=== PATIENT | male | born 2005 | race Caucasian/White ===

== ENCOUNTER 2025-07-25 11:17 | Emergency (ER) | payer BC ==
--- OUTSIDE RECORDS SUMMARY | 2025-07-25 11:23 | XMS REPORT | Continuity of Care Document ---
Author Name Unknown Address [address] [place] [address] [facility] Address [address] [place] [address] Care Team Providers Care Physical Instructor Name Role Phone Pcp, Pcp Primary Care Physician UnavailARCHIE Abbott Attending Clinician Unavailab CAROL Mccauley Attending Clinician Unavailable MEJIA JOHNS Attending Clinician Unavailable DAGMAR DE LA ROSA Attending Clinician Unavail KOJO House Attending Clinician Unavailable ROLDAN WARNER Attending Clinician Unavailable Greta Lagunas Attending Clinician [phone] Brittney Doshi Lenart Attending Clinician U Gurdeep Correia MD Attending Clinician [phone] LULÚ HINES Attending Clinician LULÚ Rosario Attending Clinician Brittney Mobley Lenart Admitting Clinician U LULÚ Kidd Admitting Clinician Harleen nogueira Payers Payer Name Policy Type Policy Number Effective Date Expirati on Date Source BCBS 2 [id number] 2025 00:00:00 [place] [id number] 2021 00:00:00 BCTP BCTP [id number] Problems Condition Name Condition Details Condition Category Status Onset Date Resolution Date Last Treatment Date Treating Clinician Comments Source Paraplegia with neurogenic urinary bladder Paraplegia with neurogenic urinary bladder Disease Active 2024-10 0- 00:00: 00 Mariah Seybold - Externa l Muscle spasticity Muscle spasticity Disease Active 2024-10 0-08 00:00: 00 Mariah Seybold - Externa l Closed fracture of spinous process of cervical vertebra Closed fracture of spinous process of cervical vertebra Disease Active 07-07 00:00: 00 [facility] Closed fracture of sternum Closed fracture of sternum Disease Active 07-07 00:00: 00 [facility] Closed fracture of transverse process of thoracic vertebra Closed fracture of transverse process of thoracic vertebra Disease Active 07-07 00:00: 00 [facility] 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 Disease Active 07-07 00:00: 00 [facility] Essential hypertensi on Essential hypertensi on Disease Active 07-07 00:00: 00 [facility] Laceration of spleen Laceration of spleen Disease Active 07-07 00:00: 00 [facility] Neurogenic bladder Neurogenic bladder Disease Active 07-07 00:00: 00 [facility] Neurogenic bowel Neurogenic bowel Disease Active 07-07 00:00: 00 [facility] Spinal cord injury at T1-T6 level with complete spinal cord lesion, initial encounter (CMS/HCC) Spinal cord injury at T1-T6 level with complete spinal cord lesion, initial encounter (CMS/HCC) Disease Active 825 00:00: 00 Memoria l Sath[facility] Fracture of wrist, right, closed, initial encounter Fracture of wrist, right, closed, initial encounter Disease Active Mariah Seybold - Externa l Orthostati c hypotensio n Orthostati c hypotensio n Disease Active Maraih Seybold - Externa l Anemia Anemia Disease Active Mariah Seybold - Externa l Broken ribs Broken ribs Disease Active Mariah Seybold - Externa l Malnutriti on Malnutriti on Disease Active Mariah Cook - Externa l Social History Social Habit Start Date Stop Date Quantity Comments Source Sexual orientation Raeann gregory Secristinoleora - External History of tobacco use Cigarette Smoker Mariah Kar corey - External Gender identity Negar pressley Secristinoleora - External Tobacco use and exposure 2025-07-23 00:00:00 2025-07-23 00:00:00 Former smokeless tobacco user Mariah Joyce - External Alcoholic beverage intake 2025-07-23 00:00:00 2025-07-23 00:00:00 Current drinker of alcohol (finding) Mariah Joyce - External History of Social function 2025-07-23 00:00:00 2025-07-23 00:00:00 Mariah Joyce - External Sex 2025-07-11 08:59:28 2025-07-11 08:59:28 Male (finding) Mariah Joyce - External Sex assigned at 2005 00:00:00 2005 00:00:00 [facility] Smoking Status Start Date Stop Date Source Tobacco smoking consumption unknown [facility] Ex-smoker 2025-07-23 00:00:00 2025-07-23 00:00:00 Mariah Carringtongurpreet - External Never smoked tobacco [facility] Medications Ordered Medication Name Filled Medication Name Start Date Stop Date Current Medication? Ordering Clinician Indication Dosage Frequency Signature (SIG) Comments Components Source Acetaminoph en (TYLENOL) 500 MG oral Tablet Acetaminoph en (TYLENOL) 500 MG oral Tablet 2024-10 11:46: 52 Yes Q.25D Take by mouth every 6 hours as needed. Mariah hardy Baclofen 10 MG oral Tablet Baclofen 10 MG oral Tablet 2024-10 11:46: 52 Yes TAKE 1/2 TABLET BY MOUTH EVERY 8 HOURS FOR 30 DAYS NEEDED FOR SPASMS Mariah hardy Bisacodyl 10 MG rectal Suppository Bisacodyl 10 MG rectal Suppository 2024-10 11:46: 52 Yes Insert 1 suppositor y every day by rectal route as needed. Mariah hardy Docusate Sodium (DSS) 100 MG oral Capsule Docusate Sodium (DSS) 100 MG oral Capsule 2024-10 11:46: 52 Yes 2{capsu le} Q.5D Take 2 capsules by mouth 2 times daily. Mariah hardy Senna-Time 8.6 MG oral Tablet Senna-Time 8.6 MG oral Tablet 2024-10 11:46: 52 Yes 2{tbl} QD Take 2 tablets by mouth daily. Mariah hardy Zinc Sulfate 220 (50 Zn) MG oral Capsule Zinc Sulfate 220 (50 Zn) MG oral Capsule 2024-10 11:46: 52 Yes 220mg Take 1 capsule (220 mg total) by mouth at bedtime. Mariah hardy Midodrine HCl 5 MG oral Tablet Midodrine HCl 5 MG oral Tablet 2024-10 00:00: 00 Yes [id number] 5mg Q.[id number] 3D Take 1 tablet (5 mg total) by mouth 3 times daily as needed (Sporting Mouthstat ic changes). Mariah hardy gabapentin (Neurontin) 300 MG capsule 2024-10 13:51: 51 Yes 300mg Q.[id number] [id number] 3D Take 300 mg by mouth in the morning and 300 mg at noon and 300 mg in the evening. [facility] midodrine (Proamatine ) 5 MG tablet 2024-10 13:51: 51 Yes TAKE 2 TABLETS BY MOUTH TWICE A DAY PRN for hypotensio n [facility] Senna-Time 8.6 MG tablet 2024-10 13:51: 51 Yes 2{tbl} QD Take 2 tablets by mouth in the morning. [facility] zinc sulfate (Zincate) 220 (50 Zn) MG capsule 2024-10 13:51: 51 Yes Take 50 mg of elemental zinc by mouth every night. [facility] docusate sodium (Colace) 100 MG capsule 2024-10 13:51: 51 Yes 200mg Q.5D Take 200 mg by mouth in the morning and 200 mg before bedtime. [facility] bisacodyl (Dulcolax) 10 MG suppository 2024-10 13:51: 51 Yes Insert 1 suppositor y every day by rectal route as needed. [facility] acetaminoph en (Tylenol) 500 MG tablet 2024-10 13:51: 42 Yes Q6H Take by mouth every 6 (six) hours if needed for mild pain. [facility] Aspirin 325 MG oral Tablet Aspirin 325 MG oral Tablet 16 00:00: 00 Yes 325mg QD Take 1 tablet (325 mg total) by mouth daily. Mariah hardy aspirin 325 MG tablet aspirin 325 MG tablet 06-19 00:00: 00 07-19 23:59 :00 No 325mg QD Take 1 tablet by mouth 1 time each day. Rainer Saleh pantoprazol e (ProtoNix) 40 MG EC tablet pantoprazol e (ProtoNix) 40 MG EC tablet 06-19 00:00: 00 07-19 23:59 :00 No 40mg Take 1 tablet by mouth in the morning. Take before meals. Do not crush, chew, or split. Rainer Saleh bisacodyl (Dulcolax) 10 MG suppository bisacodyl (Dulcolax) 10 MG suppository 06-19 00:00: 00 06-29 23:59 :00 No 10mg QD Insert 1 suppositor y into the rectum 1 time each day for 10 days. Rainer Saleh Gabapentin 300 MG oral Capsule Gabapentin 300 MG oral Capsule 06-18 00:00: 00 Yes 300mg Take 1 capsule (300 mg total) by mouth every 8 hours. Mariah hardy Midodrine HCl 5 MG oral Tablet Midodrine HCl 5 MG oral Tablet 06-18 00:00: 00 07-23 00:00 :00 No 5mg Take 1 tablet (5 mg total) by mouth every 6 (six) hours. Mariah hardy naproxen (Naprosyn) 500 MG tablet naproxen (Naprosyn) 500 MG tablet 06-18 00:00: 00 07-18 23:59 :00 No 500mg Q.5D Take 1 tablet by mouth in the morning and 1 tablet before bedtime. Rainer Saleh senna-docus ate (Clary-Colac e) 8.6-50 mg tablet senna-docus ate (Clary-Colac e) 8.6-50 mg tablet 06-18 00:00: 00 07-18 23:59 :00 No 2{tbl} Q.5D Take 2 tablets by mouth in the morning and 2 tablets before bedtime. [facility] chlorhexidi ne (Peridex) 0.12 % solution chlorhexidi ne (Peridex) 0.12 % solution 06-18 00:00: 00 07-02 23:59 :00 No 15mL Q.25D Use 15 mL in the mouth or throat if needed for wound care (For VAP prevention and oral hygiene.) for up to 14 days. [facility] acetaminoph en (Tylenol) 500 MG tablet acetaminoph en (Tylenol) 500 MG tablet 06-18 00:00: 00 06-28 23:59 :00 No 1000mg Q.25D Take 2 tablets by mouth every 6 hours for 10 days. [facility] cyclobenzap rine (Flexeril) 10 MG tablet 2023-10 2- 00:00: 00 07-16 00:00 :00 No 10mg Q.5D Take 10 mg by mouth 2 (two) times a day if needed. [facility] ibuprofen 800 MG tablet 2023-10 2-04 00:00: 00 07-16 00:00 :00 No TAKE ONE (1) TABLET(S) BY MOUTH THREE TIMES A DAY AFTER MEALS. [facility] Immunizations Ordered Immunization Name Filled Immunization Name Date Status Comments Source Pneumococcal Conjugate PCV 20 Pneumococcal Conjugate PCV 20 2025-06-18 00:00:00 Completed [facility] Hib (PRP-T) Hib (PRP-T) 2025-06-18 00:00:00 Completed [facility] Meningococcal B, Omv Meningococcal B, Omv 06-18 00:00:00 Completed [facility] Meningococcal Polysaccharide A,C,Y,W-135 TT Conjugate Meningococcal Polysaccharide A,C,Y,W-135 TT Conjugate 2025-06-18 00:00:00 [facility] Vital Signs Vital Name Observation Time Observation Value Comments S ource Systolic blood pressure 2025-07-23 11:40:00 130 mm[Hg] Mariah Stern ld - External Diastolic blood pressure 2025-07-23 11:40:00 68 mm[Hg] Mariah Stern ld - External Heart rate 2025-07-23 11:40:00 89 /min Karl Cook - External Body temperature 2025-07-23 11:40:00 36.5 Venita Mariah Cook - External Respiratory rate 2025-07-23 11:40:00 18 /min Mariah Cook - External Body height 2025-07-23 11:40:00 188 cm Negar pressley Seybold - External Body weight 2025-07-23 11:40:00 58.968 kg Negar pressley Seybold - External BMI 2025-07-23 11:40:00 16.69 kg/m2 Negar pressley Seybold - External Oxygen saturation in Arterial blood by Pulse oximetry 2025-07-23 11:40:00 98 /min Mariah castillo - External Body height 2025-07-21 18:57:00 [facility] Body weight 2025-07-21 18:57:00 [facility]432 [facility] BMI 2025-07-21 18:57:00 15.00 kg/m2 [facility] Body height 2025-07-16 18:42:00 190.5 cm [facility] Body weight 2025-07-16 18:42:00 [facility].432 [facility] BMI 2025-07-16 18:42:00 15.00 kg/m2 [facility] Body height 2025-07-09 18:01:00 190.5 [facility] Body weight 2025-07-09 18:01:00 [facility].432 [facility] BMI 2025-07-09 18:01:00 15.00 kg/m2 [facility] Body height 2025-06-25 18:20:00 190.5 cm [facility] Body weight 2025-06-25 18:20:00 [facility].432 [facility] BMI 2025-06-25 18:20:00 15.00 kg/m2 [facility] Body height 2025-06-25 16:45:00 190.5 [facility] Body weight 2025-06-25 16:45:00 [facility].432 [facility] BMI 2025-06-25 16:45:00 15.00 kg/m2 [facility] Procedures Procedure Date / Time Performed Performing Clinicia n Source CBC WITH DIFFERENTIAL 2025-07-23 00:00:00 Mariah Cook - External COMP. METABOLIC PANEL (14) 2025-07-23 00:00:00 Mariah Cook - External TSH+FREE T4 2025-07-23 00:00:00 Mariah pressleyboanna - External IRON AND TIBC 2025-07-23 00:00:00 Mariah Cook - External FERRITIN, SERUM 2025-07-23 00:00:00 Karl Cook - External Plan of Care Planned Activity Planned Date Details Comments Source Encounters Start Date/Time End Date/Time Encounter Type Admission Type Attending [facility] Care Facility Care Department Encounter ID Source 2025-11-26 14:00:00 2025-11-26 14:00:00 Outpatient ARCHIE DRAKE [id number] Mariah Cook 2025-09-03 16:30:00 2025-09-03 16:30:00 Outpatient CAROL CORDOVA [id number] Mariahcarmen Cook 2025-09-01 14:45:00 2025-09-01 14:45:00 Outpatient MEJIA JOHNS [facility] [id number] [facility] 2025-08-13 13:30:00 2025-08-13 13:30:00 Outpatient DAGMAR DE LA ROSA [facility] [id number] [facility] 2025-08-05 10:45:00 2025-08-05 10:45:00 Outpatient KOJO JEONG [id number] Mariah Cox [place] 2025-07-23 13:30:00 2025-07-23 13:30:00 Outpatient ROLDAN WARNER [facility] [id number] [facility] 2025-07-23 11:30:00 2025-07-23 11:30:00 Outpatient CAROL CORDOVA [id number] Mariah Cook 2025-07-21 00:00:00 2025-07-21 15:01:11 Outpatient [facility] [id number] [facility] 2025-07-21 13:30:00 2025-07-21 14:44:43 Outpatient [facility] [id number] [facility] 2025-07-21 13:30:00 2025-07-21 14:43:45 [facility] [place] [facility] 1.2.840.114 350.1.13.58 [id number] [id number] [facility] 2025-07-16 00:00:00 2025-07-16 14:14:52 Outpatient [facility] [id number] [facility] 2025-07-16 13:45:00 2025-07-16 14:14:21 Office Visit Greta Villatoro [facility] [address] [facility] 1.2.840.114 350.1.13.58 9.2.7.2.686 [id number] [facility] 2025-07-09 13:30:00 2025-07-09 14:10:48 Office [place]old[place] [facility] 1.2.840.114 350.1.13.58 [id number] [id number] [facility] 2025-06-18 22:03:00 2025-07-03 11:31:00 Inpatient 3 RoyBrittney Ramey [facility] [id number] [facility] 2025-06-27 09:15:00 2025-06-27 09:15:00 Outpatient [facility] [id number] [facility] 2025-06-25 13:50:00 2025-06-25 14:30:28 Outpatient [facility] [id number] [facility] 2025-06-25 13:45:00 2025-06-25 14:30:19 Outpatient [facility] [id number] [facility] 2025-06-25 13:45:00 2025-06-25 14:22:50 Office [place] Mejia Johns [place] [facility] 1.2.840.114 350.1.13.58 9.2.7.2.686 [id number] [facility] 2025-06-25 11:50:00 2025-06-25 12:48:37 Outpatient [facility] [id number] [facility] 2025-06-25 11:00:00 2025-06-25 12:25:33 Office Visit Greta Villatoro [facility] [address] 1.2.840.114 350.1.13.58 9.2.7.2.686 [id number] [facility] 2025-06-23 00:00:00 2025-06-23 14:53:20 Telephone TaylorGurdeep nolan [place] [address] 1.2.840.114 350.1.13.70 8.2.7.2.686 [id number] [facility] 2025-06-19 00:00:00 2025-06-23 14:21:21 Telephone Taylor, Gurdeep [place] [address] 1.2.840.114 350.1.13.70 8.2.7.2.686 [id number] [facility] 2025-06-23 00:00:00 2025-06-23 14:06:08 Telephone Taylor, Gurdeep Krishna [place] [address] 1.2.840.114 350.1.13.70 8.2.7.2.686 [id number] [facility] 2025-06-09 18:33:00 2025-06-18 21:32:00 Inpatient Trauma Center LULÚ HINES [facility] Trauma [id number] [facility] Results Test Description Test Time Test Comments Results Result Co mments Source [facility],TIBC,YORDY [id number] 05:44:00* Test Item Value Reference Range Interpretation Comme nts IRON, TOTAL (test code = 66731013) 12 mcg/dL 50-195 L IRON BINDING CAPACITY (test code = 75372308) 223 mcg/dL (calc) 250-425 L % SATURATION (test code = 71698579) 5 % (calc) 20-48 L FERRITIN (test code = 40588444) 373 ng/mL 38-380 N [facility]ITALBAS[facility] MET [id number] 05:44:00* Test Item Value Reference Range Interpretation Comme nts GLUCOSE (test code = 34555239) 97 mg/dL 65-99 N Fasting referenc e interval UREA NITROGEN (BUN) (test code = 94682509) 19 mg/dL 7-25 N CREATININE (test code = 04434201) 0.59 mg/dL 0.60-1.24 L EGFR (test code = 95803612) 142 mL/min/1.73m2 >=60 N BUN/CREATININE RATIO (test code = 42117091) 32 (calc) 6-22 H SODIUM (test code = 22463376) 138 mmol/L 135-146 N POTASSIUM (test code = 30116155) 4.5 mmol/L 3.5-5.3 N CHLORIDE (test code = 71937524) 97 mmol/L 98-110 L CARBON DIOXIDE (test code = 37534112) 28 mmol/L 20-32 N CALCIUM (test code = 24439608) 9.7 mg/dL 8.6-10.3 N [facility] HOSPITALHEPATIC FUNCTION [id number] 05:44:00* Test Item Value Reference Range Interpretation Comme nts PROTEIN, TOTAL (test code = 22284322) 6.7 g/dL 6.1-8.1 N ALBUMIN (test code = 59166623) 4.3 g/dL 3.6-5.1 N GLOBULIN (test code = 20788779) 2.4 g/dL (calc) 1.9-3.7 N ALBUMIN/GLOBULIN RATIO (test code = 84829266) 1.8 (calc) 1.0-2.5 N BILIRUBIN, TOTAL (test code = 63288642) 0.9 mg/dL 0.2-1.2 N BILIRUBIN, DIRECT (test code = 46263187) 0.2 mg/dL 0.0-0.2 N BILIRUBIN, INDIRECT (test code = 01278514) 0.7 mg/dL (calc) 0.2-1.2 N ALKALINE PHOSPHATASE (test code = 81186707) 107 U/L 36-130 N AST (test code = 32254951) 14 U/L 10-40 N ALT (test code = 72532061) 14 U/L 9-46 N [facility] (DIFF/PLT)2025-07-01 05:44:00* Test Item Value Reference Range Interpretation Comme nts WHITE BLOOD CELL COUNT (test code = 85170629) 15.4 Thousand/uL 3.8-10.8 H RED BLOOD CELL COUNT (test code = 47819410) 3.77 Million/uL 4.20-5.80 L HEMOGLOBIN (test code = 79245495) 10.7 g/dL 13.2-17.1 L HEMATOCRIT (test code = 97136116) 35.6 % 38.5-50.0 L MCV (test code = 96406350) 94.4 fL 80.0-100.0 N MCH (test code = 67016733) 28.4 pg 27.0-33.0 N MCHC (test code = 51807424) 30.1 g/dL 32.0-36.0 L For adults, a sl ight decrease in the calculated MCHCvalue (in the range of 30 to 32 g/dL) is most likelynot clinically significant; however, it should beinterpreted with caution in correlation with otherred cell parameters and the patient's clinicalcondition. RDW (test code = 52406172) 13.5 % 11.0-15.0 N PLATELET COUNT (test code = 77843931) 1098 Thousand/uL 140-400 H MPV (test code = 55416528) 11.7 fL 7.5-12.5 N ABSOLUTE NEUTROPHILS (test code = 41679045) 28291 cells/uL 9768-4843 H ABSOLUTE LYMPHOCYTES (test code = 56536335) 2587 cells/uL 850-3900 N ABSOLUTE MONOCYTES (test code = 25106524) 1263 cells/uL 200-950 H ABSOLUTE EOSINOPHILS (test code = 96124701) 246 cells/uL 15-500 N ABSOLUTE BASOPHILS (test code = 98958856) 46 cells/uL 0-200 N NEUTROPHILS (test code = 75632244) 73.1 % N LYMPHOCYTES (test code = 36880358) 16.8 % N MONOCYTES (test code = 28018907) 8.2 % N EOSINOPHILS (test code = 69866087) 1.6 % N BASOPHILS (test code = 24930299) 0.3 % N COMMENT(S) (test code = 10151869) Review of the peripheral smear revealsincreased numbers of platelets. [facility] HOSPITALPLATELET [id number] 05:44:00* Test Item Value Reference Range Interpretation Comme nts PLATELET ESTIMATION (test co de = 75540825) INCREASED ADEQUATE A [facility] HOSPITALIRON,TIBC,YORDY [id number] 04:01:00* Test Item Value Reference Range Interpretation Comme nts IRON, TOTAL (test code = 54739453) 12 mcg/dL 50-195 L IRON BINDING CAPACITY (test code = 48024601) 223 mcg/dL (calc) 250-425 L % SATURATION (test code = 23535775) 5 % (calc) 20-48 L FERRITIN (test code = 51088585) 373 ng/mL 38-380 N [facility] HOSPITALBASIC MET [id number] 04:01:00* Test Item Value Reference Range Interpretation Comme nts GLUCOSE (test code = 54834285) 97 mg/dL 65-99 N Fasting referenc e interval UREA NITROGEN (BUN) (test code = 88377386) 19 mg/dL 7-25 N CREATININE (test code = 79170778) 0.59 mg/dL 0.60-1.24 L EGFR (test code = 89165166) 142 mL/min/1.73m2 >=60 N BUN/CREATININE RATIO (test code = 67791413) 32 (calc) 6-22 H SODIUM (test code = 24386280) 138 mmol/L 135-146 N POTASSIUM (test code = 50739191) 4.5 mmol/L 3.5-5.3 N CHLORIDE (test code = 22818599) 97 mmol/L 98-110 L CARBON DIOXIDE (test code = 79674720) 28 mmol/L 20-32 N CALCIUM (test code = 09913968) 9.7 mg/dL 8.6-10.3 N [facility] HOSPITALHEPATIC FUNCTION [id number] 04:01:00* Test Item Value Reference Range Interpretation Comme nts PROTEIN, TOTAL (test code = 41936121) 6.7 g/dL 6.1-8.1 N ALBUMIN (test code = 91513571) 4.3 g/dL 3.6-5.1 N GLOBULIN (test code = 33235046) 2.4 g/dL (calc) 1.9-3.7 N ALBUMIN/GLOBULIN RATIO (test code = 72817104) 1.8 (calc) 1.0-2.5 N BILIRUBIN, TOTAL (test code = 10694298) 0.9 mg/dL 0.2-1.2 N BILIRUBIN, DIRECT (test code = 72054309) 0.2 mg/dL 0.0-0.2 N BILIRUBIN, INDIRECT (test code = 06550560) 0.7 mg/dL (calc) 0.2-1.2 N ALKALINE PHOSPHATASE (test code = 18242721) 107 U/L 36-130 N AST (test code = 54032823) 14 U/L 10-40 N ALT (test code = 62488580) 14 U/L 9-46 N [facility] HOSPITALIRON,TIBC,YORDY [id number] 03:54:00* Test Item Value Reference Range Interpretation Comme nts IRON, TOTAL (test code = 15139642) 12 mcg/dL 50-195 L IRON BINDING CAPACITY (test code = 11233787) 223 mcg/dL (calc) 250-425 L % SATURATION (test code = 51339112) 5 % (calc) 20-48 L [facility] [id number] 03:54:00* Test Item Value Reference Range Interpretation Comme nts GLUCOSE (test code = 16063391) 97 mg/dL 65-99 N Fasting referenc e interval UREA NITROGEN (BUN) (test code = 52290641) 19 mg/dL 7-25 N CREATININE (test code = 34608680) 0.59 mg/dL 0.60-1.24 L EGFR (test code = 87617700) 142 mL/min/1.73m2 >=60 N BUN/CREATININE RATIO (test code = 85304695) 32 (calc) 6-22 H SODIUM (test code = 63228610) 138 mmol/L 135-146 N POTASSIUM (test code = 97496446) 4.5 mmol/L 3.5-5.3 N CHLORIDE (test code = 65960773) 97 mmol/L 98-110 L CARBON DIOXIDE (test code = 95152670) 28 mmol/L 20-32 N CALCIUM (test code = 48969721) 9.7 mg/dL 8.6-10.3 N [facility] [id number] 03:54:00* Test Item Value Reference Range Interpretation Comme nts PROTEIN, TOTAL (test code = 60211703) 6.7 g/dL 6.1-8.1 N ALBUMIN (test code = 78914293) 4.3 g/dL 3.6-5.1 N GLOBULIN (test code = 21012134) 2.4 g/dL (calc) 1.9-3.7 N ALBUMIN/GLOBULIN RATIO (test code = 32919750) 1.8 (calc) 1.0-2.5 N BILIRUBIN, TOTAL (test code = 66651008) 0.9 mg/dL 0.2-1.2 N BILIRUBIN, DIRECT (test code = 02609928) 0.2 mg/dL 0.0-0.2 N BILIRUBIN, INDIRECT (test code = 88592965) 0.7 mg/dL (calc) 0.2-1.2 N ALKALINE PHOSPHATASE (test code = 67769301) 107 U/L 36-130 N AST (test code = 97660758) 14 U/L 10-40 N ALT (test code = 80763451) 14 U/L 9-46 N [facility] W/RFL [id number] 11:48:00* Test Item Value Reference Range Interpretation Comme nts COLOR (test code = 20127853) DARK YELLOW YELLOW N APPEARANCE (test code = 58882353) TURBID CLEAR A SPECIFIC GRAVITY (test code = 14920796) 1.027 1.001-1.035 N PH (test code = 56373112) 6.0 5.0-8.0 N GLUCOSE (test code = 37160806) NEGATIVE NEGATIVE N BILIRUBIN (test code = 51357468) 1+ NEGATIVE A Presumptive pos itive bilirubin. Consider confirmation by serum bilirubin if clinically indicated. KETONES (test code = 33272992) TRACE NEGATIVE A OCCULT BLOOD (test code = 74053208) 3+ NEGATIVE A PROTEIN (test code = 00324529) 3+ NEGATIVE A NITRITE (test code = 18070298) NEGATIVE NEGATIVE N LEUKOCYTE ESTERASE (test code = 77681781) 2+ NEGATIVE A WBC (test code = 53390285) PACKED /HPF 0-5 A RBC (test code = 76828227) > OR = 60 /HPF 0-2 A SQUAMOUS EPITHELIAL CELLS (test code = 81271722) 0-5 /HPF <=5 N BACTERIA (test code = 11559952) MANY /HPF NONE SEEN A HYALINE CAST (test code = 11299441) 0-5 /LPF NONE SEEN A NOTE (test code = 45738020) This urine was analyzed for the presence of WBC, RBC, bacteria, casts, and other formed elements. Only those elements seen were reported. [facility], UR [id number] 11:48:00* Test Item Value Reference Range Interpretation Comme nts SOURCE: (test code = 99827742) URINE STATUS: (test code = 13756146) FINAL ISOLATE 1: (test code = 11062019) Enterobacter cloacae complex A [facility],[id number] 11:48:00* Test Item Value Reference Range Interpretation Comme nts ISOLATE (test code = 81909701) N Enterobacter anh acae complex AMOXICILLIN/CLAVULANI C (test code = 43725519) 16 R CEFAZOLIN (test code = 73623354) >=32 R For uncomplicate d UTI caused by E. coli,K. pneumoniae or P. mirabilis: Cefazolin issusceptible if CHON <32 mcg/mL and predictssusceptible to the oral agents cefaclor, cefdinir,cefpodoxime, cefprozil, cefuroxime, cephalexinand loracarbef. CEFTAZIDIME (test code = 58757242) <=0.5 S CEFEPIME (test code = 39688109) <=0.12 S CIPROFLOXACIN (test code = 81055908) <=0.06 S LEVOFLOXACIN (test code = 75170515) <=0.12 S GENTAMICIN (test code = 27258174) <=1 S IMIPENEM (test code = 23203634) 1 S MEROPENEM (test code = 23708622) <=0.25 S NITROFURANTOIN (test code = 10481102) 32 S PIPERACILLIN/TAZOBACT AM (test code = 70452321) <=4 S TRIMETHOPRIM/SULFA (test code = 95081172) <=20 S Legend:S = Susce ptible I = IntermediateR = Resistant NS = Not susceptibleSDD = Susceptible Dose Dependent* = Not Tested NR = Not ReportedNN = See Therapy Comments [facility] [id number] 11:48:00* Test Item Value Reference Range Interpretation Comme nts REFLEXIVE URINE CULTURE (test code = 01178629) CULTURE I NDICATED - RESULTS TO FOLLOW [facility],COMP W/RFL [id number] 11:35:00* Test Item Value Reference Range Interpretation Comme nts COLOR (test code = 48094248) DARK YELLOW YELLOW N APPEARANCE (test code = 73302948) TURBID CLEAR A SPECIFIC GRAVITY (test code = 22312204) 1.027 1.001-1.035 N PH (test code = 84763254) 6.0 5.0-8.0 N GLUCOSE (test code = 11626403) NEGATIVE NEGATIVE N BILIRUBIN (test code = 42704391) 1+ NEGATIVE A Presumptive pos itive bilirubin. Consider confirmation by serum bilirubin if clinically indicated. KETONES (test code = 94819212) TRACE NEGATIVE A OCCULT BLOOD (test code = 71896751) 3+ NEGATIVE A PROTEIN (test code = 84019331) 3+ NEGATIVE A NITRITE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
--- NOTE | 2025-07-25 16:16 | RAD REPORT ---
EXAM: AP view(s) of the abdomen Abdomen 1 View (KUB) HISTORY: CONSTIPATION COMPARISON: None FINDINGS: Nonobstructive bowel gas pattern.. Large volume of stool in the colon but most pronounced at the rec liat. No suspicious calcifications are seen. No acute osseous abnormality. Other: n/a IMPRESSION: Nonobstructive bowel gas pattern. Constipation with large volume of stool.
[2025-07-25] MEDS ORDERED: FLEET ENEMA ADULT PR ONE (16:25)
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
--- NOTE | 2025-07-25 17:22 | ER ---
Nurse's Notes [facility] Name: Jeffry Medel Age: 20 yrs Sex: Male : 2005 Arrival Date: 07/25/2025 Time: 11:17 Bed 17 Private MD: Diagnosis: Fecal impaction Presentation: 07/25 12:01 Chief complaint: Parent and/or Guardian states: has not had a BM in 5 days. Coronavirus iw screen: At this time, the client does not indicate any symptoms associated with coronavirus-19. Ebola Screen: No symptoms or risks identified at this time. Initial Sepsis Screen: Does the patient meet any 2 criteria? No. Patient's initial sepsis screen is negative. Does the patient have a suspected source of infection? No. Patient's initial sepsis screen is negative. Risk Assessment: Do you want to hurt yourself or someone else? Patient reports no desire to harm self or others. Onset of symptoms was July 25, 2025. 12:01 Method Of Arrival: Wheelchair iw 12:01 Acuity: KIMBERLY 3 iw - Immunization history:: Adult Immunizations unknown. - Infectious Disease History:: Denies. - Social history:: Smoking status: unknown. Assessment: 12:30 General: Appears in no apparent distress. Behavior is calm, cooperative, appropriate rg5 for age. Pain: Denies pain. Neuro: Level of Consciousness is awake, alert, obeys commands. Cardiovascular: Denies chest pain, Patient's skin is warm and dry. Respiratory: Airway is patent Trachea midline Respiratory effort is even, unlabored, Respiratory pattern is regular, symmetrical. GI: Abdomen is flat, non-distended, Abd is soft and non tender. GI: Reports constipation. : Reports incontinence. EENT: No signs and/or symptoms were reported regarding the EENT system. Derm: Skin is intact. Derm: Skin is dry, Skin is normal, Skin temperature is cool. Musculoskeletal: Circulation, motion, and sensation intact. Range of motion: limited in right leg, left leg. 13:20 Reassessment: Patient and/or family updated on plan of care and expected duration. Pain rg5 level reassessed. Patient is alert, oriented x 3, equal unlabored respirations, skin warm/dry/pink. 14:00 Reassessment: Patient and/or family updated on plan of care and expected duration. Pain rg5 level reassessed. Patient is alert, oriented x 3, equal unlabored respirations, skin warm/dry/pink. 15:00 Reassessment: No changes from previously documented assessment. Patient and/or family rg5 updated on plan of care and expected duration. Pain level reassessed. Patient is alert, oriented x 3, equal unlabored respirations, skin warm/dry/pink. 16:19 Reassessment: No changes from previously documented assessment. Patient and/or family rg5 updated on plan of care and expected duration. Pain level reassessed. Patient is alert, oriented x 3, equal unlabored respirations, skin warm/dry/pink. Vital Signs: 13:00 BP 128 / 69; Pulse 62; Resp 18; Pulse Ox 100% ; Pain 0/10; rg5 14:00 BP 127 / 64; Pulse 57; Resp 18; Pulse Ox 100% ; rg5 15:00 BP 137 / 75; Pulse 61; Resp 18; Pulse Ox 99% ; Pain 0/10; rg5 16:14 BP 128 / 70; Pulse 71; Resp 18; Pulse Ox 100% ; Pain 0/10; rg5 13:00 Pain Scale: Adult rg5 15:00 Pain Scale: Adult rg5 16:14 Pain Scale: Adult rg5 ED Course: 11:20 Patient arrived in ED. al6 11:25 [facility] Tolbert FNP [facility]. jh7 11:25 Mina Rush MD is Attending Physician. jh7 11:39 Sima Hills, AMBROSE is Primary Nurse. me1 11:57 XRAY Abdomen 1 View (KUB) In Process Unspecified. EDMS 12:01 Triage completed. iw 12:14 Arm band placed on. iw 12:30 Patient has correct armband on for positive identification. Bed in low position. Call rg5 light in reach. Side rails up X2. Adult w/ patient. Door closed. Noise minimized. Warm blanket given. 12:30 No provider procedures requiring assistance completed. Patient did not have IV access rg5 during this emergency room visit. 15:10 Donato Siu, AMBROSE is Primary Nurse. rg5 Administered Medications: 16:37 Drug: Fleet Enema [place] 133 ml [place] once; may repeat once Route: [place]; rg5 17:30 Follow up: Response: No adverse reaction rg5 Medication: 12:30 VIS not applicable for this client. rg5 Outcome: 17:21 Discharge ordered by MD. tang 17:39 Patient left the ED. rg5 Signatures: Dispatcher [employer] Anna Wiseman RN RN iw Naty Tolbert, CRYPTOGRAPHY TEACHER CRYPTOGRAPHY TEACHER 7 Sima Hills RN RN me1 Donato Siu RN RN rg5 Chasidy Bhatia6
[2025-07-25 18:05] VITALS: BP 128/70; O2SAT 100
== END 2025-07-25 17:39 | disposition home or self-care (01) ==
LOC: ER 11:17
DX: K56.41 Fecal impaction (principal)
CPT/HCPCS: 74018; 99283